=== PATIENT | female | born 1985 | race Caucasian/White ===

== ENCOUNTER 2018-10-03 09:48 | Emergency (ER) | payer OTHER ==
[~2018-10-03] VITALS: Ht 147.3 cm; Wt 76.2 kg
[~2018-10-03 09:48] MED LIST: LOVENOX40 MG/0.4; OBSTETRIX DHA1 EACH
[2018-10-03] MEDS ORDERED: ZYRTEC10 M3 PO (11:27)
[2018-10-03] MEDS ORDERED: MEDROLPACK PO (11:27)
[2018-10-03] MEDS ORDERED: BENADRYL25 MG PO (11:40)
== END 2018-10-03 12:03 | disposition home or self-care (01) ==
LOC: ER 09:48
DX: T78.49XA Other allergy, initial encounter (principal); R21 Rash and other nonspecific skin eruption

== ENCOUNTER 2018-10-25 01:41 | Emergency (ER) | payer OTHER ==
[~2018-10-25] VITALS: Ht 147.3 cm; Wt 72.6 kg
[~2018-10-25 01:41] MED LIST changes: +BENADRYL25 MG PO; +MEDROLPACK PO; +ZYRTEC10 M3 PO
[2018-10-25] MEDS ORDERED: PLAVIX75 MG PO (01:47)
[2018-10-25] MEDS ORDERED: TOPROL XL25 M1 PO (01:48)
== END 2018-10-25 11:29 | disposition home or self-care (01) ==
LOC: ER 01:41
DX: K80.20 Calculus of gallbladder without cholecystitis without obstruction (principal); R10.11 Right upper quadrant pain

== ENCOUNTER 2018-10-30 11:04 | Emergency (ER) | payer OTHER ==
[~2018-10-30] VITALS: Ht 147.3 cm; Wt 72.6 kg
[~2018-10-30 11:04] MED LIST changes: +PLAVIX75 MG PO; +TOPROL XL25 M1 PO
== END 2018-10-30 15:49 | disposition home or self-care (01) ==
LOC: ER 11:04
DX: K80.20 Calculus of gallbladder without cholecystitis without obstruction (principal)

== ENCOUNTER 2018-11-23 09:30 | Day surgery (SDC) | payer OTHER ==
[2018-11-23] MEDS ORDERED: PERCOCET 5-3251 EACH PO (15:44)
== END 2018-11-23 20:50 | disposition home or self-care (01) ==
LOC: CIR.AMB 09:30
DX: K80.10 Calculus of gallbladder with chronic cholecystitis without obstruction (principal)

== ENCOUNTER 2019-12-06 07:25 | Outpatient (CLI) | payer OTHER ==
[~2019-12-06 07:25] MED LIST changes: +PERCOCET 5-3251 EACH PO
== END 2019-12-06 07:38 | disposition home or self-care (01) ==
LOC: LAB 07:25
DX: B00.2 Herpesviral gingivostomatitis and pharyngotonsillitis (principal); Z80.3 Family history of malignant neoplasm of breast; D50.8 Other iron deficiency anemias; D51.3 Other dietary vitamin B12 deficiency anemia; E55.9 Vitamin D deficiency, unspecified; K90.89 Other intestinal malabsorption; J45.998 Other asthma; D68.61 Antiphospholipid syndrome; K80.10 Calculus of gallbladder with chronic cholecystitis without obstruction

== ENCOUNTER 2019-12-06 08:15 | Outpatient (CLI) | payer OTHER | END 2019-12-06 08:24 | disposition home or self-care (01) | LOC: NUCLEAR 08:15 | DX: D68.62 Lupus anticoagulant syndrome (principal); Z80.3 Family history of malignant neoplasm of breast; D50.8 Other iron deficiency anemias; D51.3 Other dietary vitamin B12 deficiency anemia; E55.9 Vitamin D deficiency, unspecified; K90.89 Other intestinal malabsorption; J45.909 Unspecified asthma, uncomplicated; K80.10 Calculus of gallbladder with chronic cholecystitis without obstruction; I87.2 Venous insufficiency (chronic) (peripheral) ==

== ENCOUNTER 2019-12-06 09:36 | Outpatient (CLI) | payer OTHER | END 2019-12-06 09:39 | disposition home or self-care (01) | LOC: SONOGRAMA 09:36 | DX: Z80.3 Family history of malignant neoplasm of breast (principal); D50.8 Other iron deficiency anemias; D51.3 Other dietary vitamin B12 deficiency anemia; E55.9 Vitamin D deficiency, unspecified; K90.89 Other intestinal malabsorption; J45.998 Other asthma; D68.61 Antiphospholipid syndrome; K80.10 Calculus of gallbladder with chronic cholecystitis without obstruction; E03.8 Other specified hypothyroidism; M81.0 Age-related osteoporosis without current pathological fracture; M19.91 Primary osteoarthritis, unspecified site ==

== ENCOUNTER 2020-01-02 07:41 | Outpatient (CLI) | payer OTHER | END 2020-01-02 07:42 | disposition home or self-care (01) | LOC: SONOGRAMA 07:41 | PROVIDERS: ATTEND Pathology Anatomic Pathology & Clinical Pathology | DX: E03.8 Other specified hypothyroidism (principal) ==

== ENCOUNTER → 2020-02-15 08:19 | Outpatient (CLI) | payer OTHER | END | disposition home or self-care (01) | LOC: LAB 08:19 | PROVIDERS: ATTEND Internal Medicine Hematology & Oncology | DX: D50.8 Other iron deficiency anemias (principal); I10 Essential (primary) hypertension; D51.0 Vitamin B12 deficiency anemia due to intrinsic factor deficiency; D51.1 Vitamin B12 deficiency anemia due to selective vitamin B12 malabsorption with proteinuria; Z80.3 Family history of malignant neoplasm of breast; D51.3 Other dietary vitamin B12 deficiency anemia; E55.9 Vitamin D deficiency, unspecified; K90.89 Other intestinal malabsorption; J45.998 Other asthma; D68.61 Antiphospholipid syndrome; K80.10 Calculus of gallbladder with chronic cholecystitis without obstruction ==

== ENCOUNTER 2022-02-05 10:05 | Emergency (ER) | payer OTHER ==
[~2022-02-05] VITALS: Ht 147.3 cm; Wt 79.4 kg
[2022-02-05] MEDS ORDERED: PLAVIX75 MG PO (10:35)
[2022-02-05] MEDS ORDERED: LOSARTAN POTASS50 MG PO (10:35)
[2022-02-05] MEDS ORDERED: CYANOCOBAL1000 MCG/1 IJ (10:36)
[2022-02-05] MEDS ORDERED: VITAMIN D3250 MCG PO (10:36)
[2022-02-05] MEDS ORDERED: METOPROLOL SUCC25 MG PO (10:36)
== END 2022-02-05 12:31 | disposition home or self-care (01) ==
LOC: ER 10:05
DX: M26.609 Unspecified temporomandibular joint disorder, unspecified side (principal); Z88.8 Allergy status to other drugs, medicaments and biological substances; I10 Essential (primary) hypertension

== ENCOUNTER 2023-08-21 09:39 | Emergency (ER) | payer OTHER ==
[~2023-08-21] VITALS: Ht 147.3 cm; Wt 77.1 kg
[~2023-08-21 09:39] MED LIST changes: +CYANOCOBAL1000 MCG/1 IJ; +LOSARTAN POTASS50 MG PO; +METOPROLOL SUCC25 MG PO; +VITAMIN D3250 MCG PO
[2023-08-21] MEDS ORDERED: ELIQUIS5 MG PO (10:17)
== END 2023-08-21 12:33 | disposition home or self-care (01) ==
LOC: ER 09:39
DX: S81.859A Open bite, unspecified lower leg, initial encounter (principal); W55.01XA Bitten by cat, initial encounter; Y93.89 Activity, other specified; Y92.89 Other specified places as the place of occurrence of the external cause; Y99.8 Other external cause status; Z88.1 Allergy status to other antibiotic agents